=== PATIENT | male | born 1960 | race African-American/Black ===

== ENCOUNTER 2017-11-16 17:07 | Inpatient (IN) | payer SELFPAY ==
[~2017-11-16] VITALS: Ht 180.3 cm; Wt 101.6 kg
[2017-11-16] MEDS ORDERED: ASPIRIN 81MG TABLET PO ONE (17:45)
[2017-11-16] MEDS ORDERED: ONDANSETRON HCL 4MG/2ML INJ IV ONE (17:45)
[2017-11-16] MEDS ORDERED: NITROGLYCERIN 0.4MG TABLET SL SL PRN (17:45)
[2017-11-16 18:24] LABS: BASOPHILS % 0.1 % (0.0-2.0); EOSINOPHILS % 0.9 % (0.0-5.0); HEMATOCRIT. 41.7 % (42.0-52.0); HEMOGLOBIN. 14.1 g/dL (14.0-18.0); LYMPHOCYTES % 18.2 % (20.0-50.0); MEAN CORPUSCULAR HEMOGLOBIN 28.4 pg (28.0-32.0); MEAN CORPUSCULAR VOLUME 83.8 fL (80.0-94.0); MEAN PLATELET VOLUME 9.8 fl (7.4-10.4); MONOCYTES % 4.1 % (2.0-8.0); NEUTROPHILS % 76.7 % (40.0-76.0); PLATELET 188 x1000/uL (130-400); RED BLOOD CELL COUNT 4.98 mill/uL (4.7-6.1); RED CELL DISTRIBUTION WIDTH 13.8 % (11.6-14.6)
[2017-11-16 18:32] LABS: CHLORIDE 103 mEq/L (98-107)
[2017-11-16 18:35] LABS: INR 1.1; PROTHROMBIN TIME 10.7 sec (9.1-11.1)
[2017-11-16] MEDS ORDERED: POTASSIUM CHLORIDE 20MEQ TABLET SR PO ONE (18:45)
[2017-11-16] MEDS ORDERED: POTASSIUM CHLORIDE INJ 30 MEQ in DEXT 5%/0.9% NACL 1,000 ML IV ONE (18:45)
[2017-11-16] MEDS ORDERED: POTASSIUM CHLORIDE INJ 40 MEQ in DEXT 5% WATER 250 ML IV ONE (19:15)
[2017-11-16] MEDS ORDERED: POTASSIUM CHLORIDE INJ 40 MEQ in DEXT 5% WATER 250 ML IV NR (19:15)
[2017-11-16] MEDS ORDERED: ONDANSETRON HCL 4MG/2ML INJ IV PRN (22:30)
[2017-11-16] MEDS ORDERED: DIPHENHYDRAMINE 50MG/ML VIAL IV PRN (22:30)
[2017-11-16] MEDS ORDERED: REGADENOSON 0.4 MG/5 ML IV NR (22:30)
[2017-11-16] MEDS ORDERED: ZOLPIDEM TARTRATE 5MG TABLET PO PRN (22:30)
[2017-11-16] MEDS ORDERED: ACETAMINOPHEN 325MG TABLET PO PRN (22:30)
[2017-11-16] MEDS ORDERED: CLONIDINE 0.1MG TABLET PO PRN (22:30)
[2017-11-16] MEDS ORDERED: MORPHINE SULFATE 4 MG/ML CPJ (NOT FOR IM USE) IV PRN (22:30)
[2017-11-16] MEDS ORDERED: MAGNESIUM/ALUMINUM HYDROXIDE/SIMETHICONE 30ML UDC PO PRN (22:30)
[2017-11-16] MEDS ORDERED: MAGNESIUM HYDROXIDE 400MG/5ML 30ML UDC PO PRN (22:30)
[2017-11-16 23:00] VITALS: BP 142/71
[2017-11-17 04:00] VITALS: BP 119/60
[2017-11-17] MEDS ORDERED: SODIUM CHLORIDE 0.9% INJ 3ML FLUSH IVF SCH (06:00)
[2017-11-17 07:06] LABS: LDL CHOLESTEROL 162 mg/dL (5-100)
[2017-11-17 07:07] LABS: HDL CHOLESTEROL 33 mg/dL (40-59)
[2017-11-17] MEDS ORDERED: ASPIRIN 81MG EC TABLET PO SCH (09:00)
[2017-11-17] MEDS ORDERED: ENOXAPARIN 30MG/0.3ML SYR SUBCUT SCH (09:00)
[2017-11-17] MEDS ORDERED: PANTOPRAZOLE SODIUM 40 MG/VIAL IV SCH (09:00)
[2017-11-17] MEDS ORDERED: POTASSIUM CHLORIDE 20MEQ TABLET SR PO NR (11:06)
[2017-11-17] MEDS ORDERED: REGADENOSON 0.4 MG/5 ML IV ONE (13:45)
[2017-11-17 19:02] VITALS: BP 121/71
[2017-11-17] MEDS ORDERED: ATORVASTATIN CALCIUM 20MG TABLET PO SCH (21:00)
== END 2017-11-17 19:40 | disposition home or self-care (01) | DRG 203 ==
LOC: ER 17:07 → 7WST 19:08 → EDBEDREQTM 19:15 → EDBEDREQ 19:15 → ENRESERV 20:59 → 7WST 11-17 05:08
PROVIDERS: ADMIT Internal Medicine; ATTEND Internal Medicine
DX: R07.89 Other chest pain (principal); E78.00 Pure hypercholesterolemia, unspecified; E78.5 Hyperlipidemia, unspecified; E87.6 Hypokalemia; I45.10 Unspecified right bundle-branch block; K52.9 Noninfective gastroenteritis and colitis, unspecified; Z87.891 Personal history of nicotine dependence
CPT/HCPCS: 36415; 71045; 78452; 80053; 80061; 83036; 83690; 83735; 83880; 84484; 85025; 85610; 85730; 93005; 93017; 93306; 96365; 96375; 99285; A9500; C9113; J1650; J2405; J2785; J3480; J7042; J7060

== ENCOUNTER 2020-06-08 05:22 | Emergency (ER) | payer MEDICAID ==
[~2020-06-08] VITALS: Ht 170.2 cm; Wt 100.0 kg
[2020-06-08 06:47] LABS: BASOPHILS % 0.7 % (0.0-2.0); EOSINOPHILS % 2.4 % (0.0-5.0); HEMATOCRIT. 39.4 % (42.0-52.0); HEMOGLOBIN. 13.6 g/dL (14.0-18.0); MEAN CORPUSCULAR HEMOGLOBIN 29.1 pg (28.0-32.0); MEAN CORPUSCULAR VOLUME 84.5 fL (80.0-94.0); MEAN PLATELET VOLUME 10.4 fl (7.4-10.4); MONOCYTES % 5.6 % (2.0-8.0); NEUTROPHILS % 64.3 % (40.0-76.0); PLATELET 177 x1000/uL (130-400); RED BLOOD CELL COUNT 4.67 mill/uL (4.7-6.1); RED CELL DISTRIBUTION WIDTH 13.9 % (11.6-14.6)
[2020-06-08 06:54] LABS: CHLORIDE 109 mEq/L (98-107)
[2020-06-08 10:10] VITALS: BP 145/81
[2020-06-08] MEDS ORDERED: CLONIDINE 0.1MG TABLET PO PRN (10:15)
[2020-06-08] MEDS ORDERED: DOCUSATE SODIUM 100MG CAPSULE PO PRN (10:15)
[2020-06-08] MEDS ORDERED: ENOXAPARIN 30MG/0.3ML SYR SUBCUT SCH (10:15)
[2020-06-08] MEDS ORDERED: IPRATROPIUM/ALBUTEROL 0.5-3(2.5)MG/3ML NEB NEB PRN (10:15)
[2020-06-08] MEDS ORDERED: ONDANSETRON HCL 4MG/2ML INJ IV PRN (10:15)
[2020-06-08] MEDS ORDERED: NITROGLYCERIN 0.4MG TABLET SL SL PRN (10:15)
[2020-06-08] MEDS ORDERED: KETOROLAC 15MG/ML VIAL IV PRN (10:15)
[2020-06-08] MEDS ORDERED: GUAIFENESIN 200MG/10ML SUGAR FREE UDC PO PRN (10:15)
[2020-06-08] MEDS ORDERED: MAGNESIUM/ALUMINUM HYDROXIDE/SIMETHICONE 30ML UDC PO PRN (10:15)
[2020-06-08] MEDS ORDERED: ACETAMINOPHEN 325MG TABLET PO PRN ×2 (10:15)
[2020-06-08 10:28] LABS: ETHANOL BLOOD < 10 mg/dL
[2020-06-08 10:30] LABS: TOTAL IRON BINDING CAPACITY 339 ug/dL (250-450)
[2020-06-08] MEDS ORDERED: FAMOTIDINE 20MG TABLET PO SCH (10:30)
[2020-06-08] MEDS ORDERED: ASCORBIC ACID 500 MG TABLET PO SCH (10:30)
[2020-06-08] MEDS ORDERED: METOPROLOL TARTRATE 25MG TABLET PO SCH (10:30)
[2020-06-08] MEDS ORDERED: ZINC SULFATE 220 MG ( 50 ) CAPSULE PO SCH (10:30)
[2020-06-08 10:31] LABS: LDL CHOLESTEROL 171 mg/dL (5-100)
[2020-06-08 10:33] LABS: HDL CHOLESTEROL 41 mg/dL (40-59)
[2020-06-08 11:00] LABS: VITAMIN B12 SERUM 458 pg/mL (211-911)
[2020-06-08 11:03] LABS: FOLIC ACID (FOLATE) SERUM > 20.00 ng/mL (>5.38)
[2020-06-08] MEDS ORDERED: CHOLECALCIFEROL (D3) 1000 UNIT TABLET PO SCH (12:00)
[2020-06-08] MEDS ORDERED: ZOLPIDEM TARTRATE 5MG TABLET PO PRN (21:00)
[2020-06-08] MEDS ORDERED: ATORVASTATIN CALCIUM 20MG TABLET PO SCH (21:00)
[2020-06-09] MEDS ORDERED: ASPIRIN 325MG EC TABLET PO SCH (09:00)
== END 2020-06-08 10:31 | disposition admitted as inpatient to this hospital (09) ==
LOC: ER 05:22 → CANRESERV 11:00 → ENRESERV 11:00 → CANBEDREQ 11:12
DX: R07.89 Other chest pain (principal); I10 Essential (primary) hypertension; E78.00 Pure hypercholesterolemia, unspecified; F11.10 Opioid abuse, uncomplicated; D64.9 Anemia, unspecified; I45.10 Unspecified right bundle-branch block
CPT/HCPCS: 36415; 71045; 80053; 80061; 80320; 82607; 82746; 83036; 83540; 83550; 83880; 84484; 85025; 93005; 99285; G0480

== ENCOUNTER 2020-06-08 22:03 | Inpatient (IN) | payer MEDICAID ==
[~2020-06-08] VITALS: Ht 180.3 cm; Wt 96.2 kg
[2020-06-09] MEDS ORDERED: NITROGLYCERIN OINT 1GM/INCH UDPKT TD ONE (00:30)
[2020-06-09] MEDS ORDERED: ZOLPIDEM TARTRATE 5MG TABLET PO PRN (07:15)
[2020-06-09] MEDS ORDERED: GUAIFENESIN 200MG/10ML SUGAR FREE UDC PO PRN (07:15)
[2020-06-09] MEDS ORDERED: ACETAMINOPHEN 325MG TABLET PO PRN ×2 (07:15)
[2020-06-09] MEDS ORDERED: CLONIDINE 0.1MG TABLET PO PRN (07:15)
[2020-06-09] MEDS ORDERED: MAGNESIUM/ALUMINUM HYDROXIDE/SIMETHICONE 30ML UDC PO PRN (07:15)
[2020-06-09] MEDS ORDERED: NITROGLYCERIN 0.4MG TABLET SL SL PRN (07:15)
[2020-06-09] MEDS ORDERED: DOCUSATE SODIUM 100MG CAPSULE PO PRN (07:15)
[2020-06-09] MEDS ORDERED: IPRATROPIUM/ALBUTEROL 0.5-3(2.5)MG/3ML NEB NEB PRN (07:15)
[2020-06-09] MEDS ORDERED: ENOXAPARIN 40MG/0.4ML SYR SUBCUT SCH (07:15)
[2020-06-09] MEDS ORDERED: ONDANSETRON HCL 4MG/2ML INJ IV PRN (07:15)
[2020-06-09] MEDS ORDERED: ASPIRIN 325MG EC TABLET PO SCH (09:00)
[2020-06-09] MEDS ORDERED: METOPROLOL TARTRATE 25MG TABLET PO SCH (09:00)
[2020-06-09 10:00] VITALS: BP_SYST 138; BP_SYST 142; BP_DIAS 78; BP_DIAS 80
[2020-06-09] MEDS ORDERED: AMLODIPINE 10MG TABLET PO NR (10:08)
[2020-06-09] MEDS ORDERED: FAMOTIDINE 20MG TABLET PO NR (10:30)
[2020-06-09] MEDS: ASPIRIN 81MG EC TABLET PO SCH (11:14)
[2020-06-09 11:29] LABS: BASOPHILS % 0.3 % (0.0-2.0); EOSINOPHILS % 1.5 % (0.0-5.0); HEMATOCRIT. 39.7 % (42.0-52.0); HEMOGLOBIN. 13.4 g/dL (14.0-18.0); MEAN CORPUSCULAR HEMOGLOBIN 28.9 pg (28.0-32.0); MEAN CORPUSCULAR VOLUME 85.2 fL (80.0-94.0); MEAN PLATELET VOLUME 10.5 fl (7.4-10.4); MONOCYTES % 4.9 % (2.0-8.0); NEUTROPHILS % 67.3 % (40.0-76.0); PLATELET 154 x1000/uL (130-400); RED BLOOD CELL COUNT 4.65 mill/uL (4.7-6.1); RED CELL DISTRIBUTION WIDTH 13.8 % (11.6-14.6)
[2020-06-09 11:40] LABS: CHLORIDE 108 mEq/L (98-107)
[2020-06-09] MEDS ORDERED: REGADENOSON 0.4 MG/5 ML IV NR (12:15)
[2020-06-09 12:30] VITALS: BP 138/68
[2020-06-09 14:21] LABS: *AMPHETAMINES SCREEN URINE NEGATIVE (NEGATIVE); *BARBITURATES SCREEN URINE NEGATIVE (NEGATIVE); CANNABINOID URINE SCREEN NEGATIVE (NEGATIVE); METHADONE URINE SCREEN NEGATIVE (NEGATIVE); OPIATES URINE SCREEN NEGATIVE (NEGATIVE); PHENCYCLIDINE URINE SCREEN NEGATIVE (NEGATIVE)
[2020-06-09 14:22] LABS: *BENZODIAZEPINES SCREEN URINE NEGATIVE (NEGATIVE); *COCAINE SCREEN URINE NEGATIVE (NEGATIVE)
[2020-06-09 16:09] VITALS: BP 136/78
[2020-06-09 16:12] LABS: CREATINE KINASE 226 IU/L (39-308)
[2020-06-09 16:13] LABS: CREATINE KINASE MB FRACTION 1.8 ng/mL (0.5-3.6)
[2020-06-09 20:00] VITALS: BP 160/82
[2020-06-09] MEDS ORDERED: ATORVASTATIN CALCIUM 40MG TABLET PO SCH (21:00)
[2020-06-09] MEDS ORDERED: ATORVASTATIN CALCIUM 20MG TABLET PO SCH (21:00)
[2020-06-09] MEDS: FAMOTIDINE 20MG TABLET PO SCH (21:53)
[2020-06-09] MEDS: ENOXAPARIN 30MG/0.3ML SYR SUBCUT SCH (21:54)
[2020-06-10] VITALS: BP 144/83
[2020-06-10 01:09] LABS: CREATINE KINASE 228 IU/L (39-308)
[2020-06-10 01:10] LABS: CREATINE KINASE MB FRACTION 1.8 ng/mL (0.5-3.6)
[2020-06-10 04:00] VITALS: BP 141/85
[2020-06-10 07:24] LABS: CHLORIDE 107 mEq/L (98-107)
[2020-06-10 08:00] VITALS: BP 136/82
[2020-06-10] MEDS: ASPIRIN 81MG EC TABLET PO SCH (08:01)
[2020-06-10] MEDS: FAMOTIDINE 20MG TABLET PO SCH (08:01)
[2020-06-10 08:02] LABS: BASOPHILS % 0.5 % (0.0-2.0); EOSINOPHILS % 2.2 % (0.0-5.0); HEMATOCRIT. 40.5 % (42.0-52.0); LYMPHOCYTES % 26.7 % (20.0-50.0); MEAN CORPUSCULAR HEMOGLOBIN 29.3 pg (28.0-32.0); MEAN CORPUSCULAR VOLUME 84.7 fL (80.0-94.0); MONOCYTES % 6.8 % (2.0-8.0); NEUTROPHILS % 63.8 % (40.0-76.0); PLATELET 155 x1000/uL (130-400); RED BLOOD CELL COUNT 4.78 mill/uL (4.7-6.1); RED CELL DISTRIBUTION WIDTH 14.1 % (11.6-14.6)
[2020-06-10] MEDS: ENOXAPARIN 30MG/0.3ML SYR SUBCUT SCH (08:02)
[2020-06-10] MEDS ORDERED: REGADENOSON 0.4 MG/5 ML IV ONE (08:50)
[2020-06-10] MEDS ORDERED: AMLODIPINE 10MG TABLET PO SCH (09:00)
[2020-06-10 15:37] VITALS: BP 142/82
[2020-06-10 15:54] VITALS: BP 142/82
== END 2020-06-10 18:45 | disposition home or self-care (01) | DRG 203 ==
LOC: ER 22:03 → 6WST 06-09 03:34 → EDBEDREQTM 06-09 04:06 → EDBEDREQ 06-09 04:06 → ENRESERV 06-09 08:36
PROVIDERS: ADMIT Internal Medicine; ATTEND Internal Medicine
DX: M94.0 Chondrocostal junction syndrome [Tietze] (principal); D63.8 Anemia in other chronic diseases classified elsewhere; E11.9 Type 2 diabetes mellitus without complications; E78.00 Pure hypercholesterolemia, unspecified; E78.5 Hyperlipidemia, unspecified; I10 Essential (primary) hypertension; R00.1 Bradycardia, unspecified; F11.10 Opioid abuse, uncomplicated; Z20.822 Contact with and (suspected) exposure to COVID-19; Z79.899 Other long term (current) drug therapy; Z79.1 Long term (current) use of non-steroidal anti-inflammatories (NSAID); Z79.51 Long term (current) use of inhaled steroids
CPT/HCPCS: 36415; 78452; 80048; 80053; 80305; 82550; 82553; 83735; 84100; 84484; 85025; 87426; 93005; 93017; 93306; 99285; A9500; J1650; J2785